=== PATIENT | female | born 1950 | race Asian ===

== ENCOUNTER → 2016-11-19 | Outpatient (CLI) | payer MEDICARE, OTHER | END | disposition home or self-care (01) | LOC: CFH 09:08 | DX: K80.20 Calculus of gallbladder without cholecystitis without obstruction (principal); N28.1 Cyst of kidney, acquired | CPT/HCPCS: 76700 ==

== ENCOUNTER → 2017-06-17 | Outpatient (CLI) | payer MEDICARE, OTHER | LOC: CFH 09:01 | DX: K80.20 Calculus of gallbladder without cholecystitis without obstruction (principal); N28.1 Cyst of kidney, acquired; B19.10 Unspecified viral hepatitis B without hepatic coma | CPT/HCPCS: 76700 ==

== ENCOUNTER → 2017-12-22 | Outpatient (CLI) | payer MEDICARE, OTHER | END | disposition home or self-care (01) | LOC: CFH 10:27 | DX: K76.0 Fatty (change of) liver, not elsewhere classified (principal); K80.20 Calculus of gallbladder without cholecystitis without obstruction; N28.1 Cyst of kidney, acquired | CPT/HCPCS: 76700 ==

== ENCOUNTER → 2018-06-23 | Outpatient (CLI) | payer MEDICARE, OTHER | END | disposition home or self-care (01) | LOC: CFH 11:10 | DX: K80.20 Calculus of gallbladder without cholecystitis without obstruction (principal); N28.1 Cyst of kidney, acquired | CPT/HCPCS: 76700 ==

== ENCOUNTER 2018-07-30 09:59 | Observation (INO) | payer MEDICARE, OTHER ==
[~2018-07-30] VITALS: Ht 160 cm; Wt 74.4 kg
[2018-07-30] MEDS: NS + 20MEQ KCL 1,000 ML IV SCH ×2 (06:14→18:27)
[2018-07-30] MEDS: PLEASE ENTER HEIGHT AND WEIGHT MC SCH ×2 (08:00→14:34)
[~2018-07-30 09:59] MED LIST: ACETAMINOPHEN 650 MG/20.3 ML UDC PO PRN; AMLO-150 PO; ATOR10TA PO; BISACODYL 10 MG SUPP PR PRN; CALC600T4 PO; CHOL2000 PO; DIPHENHYDRAMINE 50 MG CAPSULE PO PRN; EPINEPHRINE 1 MG/ML, 1ML ONE; FENTANYL PF 250 MCG/5ML ONE; HYDROcodone/APAP 5/325 TABLET PO PRN; HYDROmorphone 1 MG/ML, 1ML IV PRN; IRON18TA PO; KETOROLAC 60 MG/2 ML ONE; LINA290C PO; MAGNESIUM HYDROXIDE 8%, 30ML UDC PO PRN; MIDAZOLAM 1 MG/ML, 2ML ONE; MULT-709 PO; OLME40TA12 PO; ONDANSETRON 2MG/ML, 2ML IV PRN; ONDANSETRON 4 MG TABLET PO PRN; ROPIvacaine/PF 0.5%, 30 ML ONE; SCOPOLAMINE PATCH, 1.5MG PATCH.TD72 TD ONE; SENNA/DOCUSATE TABLET PO PRN; SODIUM CHLORIDE 0.9% 50 ML ONE; TENO300T5 PO; TRANEXAMIC ACID 100 MG/ML, 10ML ONE; VANCOMYCIN 1,000 MG ONE; ZOLPIDEM 5MG TABLET PO PRN
[2018-07-30] MEDS ORDERED: LIDOCAINE-MPF 1%, 2ML ONE (10:08)
[2018-07-30] MEDS ORDERED: LACTATED RINGERS 1,000 ML IV SCH (10:11)
[2018-07-30 10:18] VITALS: BP 137/80
[2018-07-30] MEDS ORDERED: ACETAMINOPHEN 500 MG TABLET PO ONE (10:30)
[2018-07-30] MEDS ORDERED: LIDOCAINE-MPF 1%, 2ML INFIL ONE (10:30)
[2018-07-30] MEDS ORDERED: GABAPENTIN 300 MG CAPSULE PO ONE (10:30)
[2018-07-30] MEDS ORDERED: DEXAMETHASONE 4 MG/ML, 1ML ONE (10:40)
[2018-07-30] MEDS ORDERED: ALBUTEROL/IPRATROPIUM 2.5MG/0.5MG, 3 ML NPPB PRN (11:30)
[2018-07-30] MEDS ORDERED: METOPROLOL 1 MG/ML, 5ML IV PRN (11:30)
[2018-07-30] MEDS ORDERED: PROMETHAZINE 25 MG/ML, 1ML IV PRN (11:30)
[2018-07-30] MEDS ORDERED: hydrALAzine 20 MG/ML, 1ML IV PRN (11:30)
[2018-07-30] MEDS ORDERED: MIDAZOLAM 1 MG/ML, 2ML IV PRN (11:30)
[2018-07-30] MEDS ORDERED: FENTANYL PF 100 MCG/2ML IV PRN (11:30)
[2018-07-30] MEDS ORDERED: ONDANSETRON 2MG/ML, 2ML IV PRN (11:30)
[2018-07-30] MEDS ORDERED: OXYcodone 5 MG/5 ML ORAL.SOL UDC PO PRN (11:30)
[2018-07-30] MEDS ORDERED: HYDROmorphone 2 MG/ML, 1ML IVPush PRN (11:30)
[2018-07-30] MEDS ORDERED: MEPERIDINE/PF 25MG/0.5ML IVPush PRN (11:30)
[2018-07-30] MEDS ORDERED: SCOPOLAMINE PATCH, 1.5MG PATCH.TD72 TD PRN (11:30)
[2018-07-30] MEDS ORDERED: EPHEDRINE 50 MG/ML, 1ML ONE (11:32)
[2018-07-30] MEDS ORDERED: BUPIVACAINE/PF 0.25% ONE (11:32)
[2018-07-30] MEDS ORDERED: LIDOCAINE-MPF 2% ,5ML ONE (11:32)
[2018-07-30] MEDS ORDERED: ONDANSETRON 2MG/ML, 2ML ONE (11:34)
[2018-07-30] MEDS ORDERED: CEFAZOLIN 1,000 MG ONE (11:34)
[2018-07-30] MEDS ORDERED: PROPOFOL 10 MG/ML, 20ML ONE (11:34)
[2018-07-30] MEDS ORDERED: OXYcodone 5 MG/5 ML ORAL.SOL UDC ONE (12:21)
[2018-07-30] MEDS: DOCUSATE 100 MG CAPSULE PO SCH ×2 (14:34→21:16)
[2018-07-30 14:59] VITALS: BP 96/57
[2018-07-30] MEDS: CEFAZOLIN PMX 2GM/50ML 50 ML IVPB SCH (18:27)
[2018-07-30] MEDS: ASPIRIN 81 MG TABLET EC PO SCH (18:28)
[2018-07-30 19:14] VITALS: BP 123/68
[2018-07-30] MEDS: TEMPLATE NON-FORMULARY MED. (Linaclotide** (Linzess**) 290 MCG) PO SCH (21:00)
[2018-07-30] MEDS: TENOFOVIR 300MG TABLET PO SCH (21:00)
[2018-07-30 21:14] VITALS: BP 113/66
[2018-07-30] MEDS: ATORVASTATIN 10 MG TABLET PO SCH (21:16)
[2018-07-30] MEDS: AMLODIPINE 5 MG TABLET PO SCH (21:16)
[2018-07-30] MEDS: LOSARTAN 50MG TABLET PO SCH (21:16)
[2018-07-31] VITALS (13 sets, daily range): BP systolic 108–120; BP diastolic 63–72
[2018-07-31] MEDS: PLEASE ENTER HEIGHT AND WEIGHT MC SCH
[2018-07-31] MEDS: CEFAZOLIN PMX 2GM/50ML 50 ML IVPB SCH (03:16)
[2018-07-31] MEDS ORDERED: DEXAMETHASONE 4 MG/ML, 1ML IVPush SCH (06:00)
[2018-07-31] MEDS: ASPIRIN 81 MG TABLET EC PO SCH ×2 (06:37→18:05)
[2018-07-31] MEDS: NS + 20MEQ KCL 1,000 ML IV SCH ×2 (07:14→19:44)
[2018-07-31] MEDS: DOCUSATE 100 MG CAPSULE PO SCH ×2 (07:59→20:16)
[2018-07-31] MEDS ORDERED: OXYC5TAB3 PO (10:30)
[2018-07-31] MEDS ORDERED: TRAM50TA2 PO (10:31)
[2018-07-31] MEDS ORDERED: MELO7.5T31 PO (10:32)
[2018-07-31] MEDS: AMLODIPINE 5 MG TABLET PO SCH (20:16)
[2018-07-31] MEDS: TENOFOVIR 300MG TABLET PO SCH (20:16)
[2018-07-31] MEDS: ATORVASTATIN 10 MG TABLET PO SCH (20:16)
[2018-07-31] MEDS: TEMPLATE NON-FORMULARY MED. (Linaclotide** (Linzess**) 290 MCG) PO SCH (20:17)
[2018-07-31] MEDS: LOSARTAN 50MG TABLET PO SCH (20:17)
[2018-07-31] MEDS: OXYcodone IR 5MG TABLET PO PRN ×2 (22:29→23:00)
[2018-08-01 02:20] VITALS: BP 119/68
[2018-08-01] MEDS: ASPIRIN 81 MG TABLET EC PO SCH (04:59)
[2018-08-01] MEDS: OXYcodone IR 5MG TABLET PO PRN ×2 (04:59→10:34)
[2018-08-01 07:50] VITALS: BP 129/67
[2018-08-01] MEDS: DOCUSATE 100 MG CAPSULE PO SCH (08:04)
[2018-08-01] MEDS: NS + 20MEQ KCL 1,000 ML IV SCH (08:04)
[2018-08-01 10:21] VITALS: BP 122/71
== END 2018-08-01 10:40 | disposition home or self-care (01) ==
LOC: OUT 09:59 → 4NOR 13:12 → OUT 18:29 → 4NOR 18:29
PROVIDERS: ADMIT Orthopaedic Surgery; ATTEND Orthopaedic Surgery
DX: M17.11 Unilateral primary osteoarthritis, right knee (principal); Z96.659 Presence of unspecified artificial knee joint
CPT/HCPCS: 27446; 36415; 85014; 85018; 96365; 96366; 97110; 97116; 97162; 97166; 97530; C1713; C1776; G0378; J0171; J0690; J1100; J1885; J2250; J2405; J2704; J2795; J3010; J3370; J3480; J3490; J7120

== ENCOUNTER → 2018-12-08 | Outpatient (CLI) | payer MEDICARE, OTHER ==
[~2018-12-08] MED LIST changes: -ACETAMINOPHEN 650 MG/20.3 ML UDC PO PRN; -BISACODYL 10 MG SUPP PR PRN; -DIPHENHYDRAMINE 50 MG CAPSULE PO PRN; -EPINEPHRINE 1 MG/ML, 1ML ONE; -FENTANYL PF 250 MCG/5ML ONE; -HYDROcodone/APAP 5/325 TABLET PO PRN; -HYDROmorphone 1 MG/ML, 1ML IV PRN; -KETOROLAC 60 MG/2 ML ONE; -MAGNESIUM HYDROXIDE 8%, 30ML UDC PO PRN; +MELO7.5T31 PO; -MIDAZOLAM 1 MG/ML, 2ML ONE; -ONDANSETRON 2MG/ML, 2ML IV PRN; -ONDANSETRON 4 MG TABLET PO PRN; +OXYC5TAB3 PO; -ROPIvacaine/PF 0.5%, 30 ML ONE; -SCOPOLAMINE PATCH, 1.5MG PATCH.TD72 TD ONE; -SENNA/DOCUSATE TABLET PO PRN; -SODIUM CHLORIDE 0.9% 50 ML ONE; +TRAM50TA2 PO; -TRANEXAMIC ACID 100 MG/ML, 10ML ONE; -VANCOMYCIN 1,000 MG ONE; -ZOLPIDEM 5MG TABLET PO PRN
== END | disposition home or self-care (01) ==
LOC: CFH 08:25
DX: K76.0 Fatty (change of) liver, not elsewhere classified (principal); K85.10 Biliary acute pancreatitis without necrosis or infection; I10 Essential (primary) hypertension; E78.5 Hyperlipidemia, unspecified; K59.00 Constipation, unspecified; D64.9 Anemia, unspecified
CPT/HCPCS: 76700

== ENCOUNTER 2019-05-06 10:59 | Emergency (ER) | payer MEDICARE, OTHER ==
[~2019-05-06] VITALS: Ht 160 cm; Wt 71.3 kg
[2019-05-06] MEDS ORDERED: DULCOLAX PO (11:33)
[2019-05-06] MEDS ORDERED: VITAMIN B12 PO (11:33)
--- NOTE | 2019-05-06 11:36 | NUR ---
PT C/O CONTINUED CONSTIPATION SINCE BEING TREATED HERE 04/18/19. PT ATTEMPTED GOLYTLELY, MAG CITRATE, STOOL SOFTENERS WITH NO RELIEF. PT DENEIS PAIN OR N/V. PT HAS BEEN HAVING LIQUID STOOLS. LAST NORMAL BM WAS ONE MONTH AGO.
--- NOTE | 2019-05-06 12:19 | NUR ---
CHART UP FOR MD RECHECK. PT AND FAMILY AWARE.
--- NOTE | 2019-05-06 12:23 | NUR ---
REPORT RECIEVED FROM DOLORES BIGGS. ASSUMED CARE OF PT.
[2019-05-06 13:02] VITALS: BP 102/69
== END 2019-05-06 13:03 | disposition home or self-care (01) ==
LOC: ED 12:29
DX: K62.89 Other specified diseases of anus and rectum (principal); I10 Essential (primary) hypertension; E78.5 Hyperlipidemia, unspecified; Z90.710 Acquired absence of both cervix and uterus
CPT/HCPCS: 74021; 99283

== ENCOUNTER 2019-06-02 08:42 | Outpatient (CLI) | payer MEDICARE, OTHER ==
[~2019-06-02 08:42] MED LIST changes: +DULCOLAX PO; +VITAMIN B12 PO
[2019-06-02] MEDS ORDERED: OMNIPAQUE 350 MG/ML, 100ML BOTTLE ONE (15:00)
== END 2019-06-02 23:59 | disposition home or self-care (01) ==
LOC: CFH 08:42
PROVIDERS: ATTEND Nurse Practitioner Family
DX: K80.20 Calculus of gallbladder without cholecystitis without obstruction (principal); K76.9 Liver disease, unspecified; M85.80 Other specified disorders of bone density and structure, unspecified site; N95.9 Unspecified menopausal and perimenopausal disorder
CPT/HCPCS: 74177; 77080; 82565; Q9967

== ENCOUNTER 2019-06-14 08:37 | Outpatient (CLI) | payer MEDICARE, OTHER | END 2019-06-14 23:59 | disposition home or self-care (01) | LOC: CFH 08:37 | DX: B19.10 Unspecified viral hepatitis B without hepatic coma (principal); K80.80 Other cholelithiasis without obstruction; K76.0 Fatty (change of) liver, not elsewhere classified | CPT/HCPCS: 76700 ==

== ENCOUNTER 2019-12-26 09:47 | Outpatient (CLI) | payer MEDICARE, OTHER | END 2019-12-26 23:59 | disposition home or self-care (01) | LOC: CFH 09:47 | DX: K80.20 Calculus of gallbladder without cholecystitis without obstruction (principal); K76.89 Other specified diseases of liver; B19.10 Unspecified viral hepatitis B without hepatic coma | CPT/HCPCS: 76700 ==

== ENCOUNTER → 2020-04-26 | Outpatient (CLI) | payer MEDICARE, OTHER ==
[~2020-04-26] MED LIST changes: -CALC600T4 PO; +CALC600T60 PO; +Iron PO; +vitamin c PO
[2020-04-26 13:47] LABS: ANION GAP 3 mmol/L (5-15); CHLORIDE 110 mmol/L (98-107)
[2020-04-26 13:48] LABS: ALANINE AMINOTRANSFERASE 41 U/L (12-78); ALBUMIN 3.5 g/dL (3.4-5.0); ALKALINE PHOSPHATASE 150 U/L (45-117); BILIRUBIN,TOTAL 0.4 mg/dL (0.2-1.0); CALCIUM 8.9 mg/dL (8.5-10.1); CREATININE 0.99 mg/dL (0.55-1.02); TOTAL PROTEIN 7.7 g/dL (6.4-8.2)
== END | disposition home or self-care (01) ==
LOC: STAR 11:14
PROVIDERS: ATTEND Internal Medicine
DX: Z01.818 Encounter for other preprocedural examination (principal); K56.41 Fecal impaction; R94.31 Abnormal electrocardiogram [ECG] [EKG]
CPT/HCPCS: 36415; 80053; 93005

== ENCOUNTER → 2020-05-01 | Outpatient (CLI) | payer MEDICARE, OTHER | END | disposition home or self-care (01) | LOC: RAD 09:35 | PROVIDERS: ATTEND Internal Medicine | DX: K80.20 Calculus of gallbladder without cholecystitis without obstruction (principal); N28.1 Cyst of kidney, acquired; B18.1 Chronic viral hepatitis B without delta-agent | CPT/HCPCS: 76700 ==

== ENCOUNTER 2020-05-09 06:34 | Day surgery (SDC) | payer MEDICARE, OTHER ==
[~2020-05-09] VITALS: Ht 160 cm; Wt 71.0 kg
[2020-05-09] MEDS ORDERED: LACTATED RINGERS 1,000 ML IV ONE (07:11)
[2020-05-09] MEDS ORDERED: CHLORHEXIDINE 15 ML UDC MM STA (07:11)
[2020-05-09 07:13] VITALS: BP 124/68
[2020-05-09] MEDS ORDERED: CHLORHEXIDINE 15 ML UDC ONE (07:17)
[2020-05-09] MEDS ORDERED: LIDOCAINE-MPF 1%, 2ML ONE (07:20)
[2020-05-09] MEDS ORDERED: LIDOCAINE-MPF 1%, 2ML INFIL STA (07:41)
[2020-05-09] MEDS ORDERED: PROPOFOL 10 MG/ML, 20ML ONE ×4 (09:26)
[2020-05-09] MEDS ORDERED: DIAZEPAM 5 MG/ML, 2ML IVPush PRN (10:00)
[2020-05-09] MEDS ORDERED: PROMETHAZINE 25 MG/ML, 1ML IVPush PRN (10:00)
[2020-05-09] MEDS ORDERED: ONDANSETRON 2MG/ML, 2ML IVPush PRN (10:00)
[2020-05-09] MEDS ORDERED: MEPERIDINE/PF 25MG/0.5ML IVPush PRN (10:00)
[2020-05-09] MEDS ORDERED: EPHEDRINE 50 MG/ML, 1ML IVPush PRN (10:00)
[2020-05-09] MEDS ORDERED: hydrALAzine 20 MG/ML, 1ML IV PRN (10:00)
[2020-05-09] MEDS ORDERED: FENTANYL PF 100 MCG/2ML IV PRN (10:00)
[2020-05-09] MEDS ORDERED: DIPHENHYDRAMINE 50 MG/ML, 1ML IVPush PRN (10:00)
[2020-05-09] MEDS ORDERED: OXYcodone 5 MG/5 ML ORAL.SOL UDC PO PRN (10:00)
[2020-05-09] MEDS ORDERED: HYDROmorphone 1 MG/ML, 1ML INJ IVPush PRN (10:00)
[2020-05-09] MEDS ORDERED: PROMETHAZINE 12.5 MG SUPP PR PRN (10:00)
[2020-05-09] MEDS ORDERED: ALBUTEROL SULFATE 2.5 MG/3 ML NPPB PRN (10:00)
[2020-05-09] MEDS ORDERED: MIDAZOLAM 1 MG/ML, 2ML IV PRN (10:00)
[2020-05-09] MEDS ORDERED: LABETALOL 5MG/ML, 20ML IV PRN (10:00)
[2020-05-09] MEDS ORDERED: OXYcodone 5 MG/5 ML ORAL.SOL UDC ONE (10:17)
[2020-05-09] MEDS ORDERED: FENTANYL PF 100 MCG/2ML ONE (10:17)
[2020-05-09] MEDS ORDERED: ACETAMINOPHEN 650 MG/20.3 ML UDC ONE (10:17)
[2020-05-09] MEDS ORDERED: ACETAMINOPHEN 650 MG SUPP PR PRN (10:30)
== END 2020-05-09 11:50 | disposition home or self-care (01) ==
LOC: OUT 06:34
PROVIDERS: ATTEND Internal Medicine
DX: K56.41 Fecal impaction (principal); I10 Essential (primary) hypertension; E78.5 Hyperlipidemia, unspecified; Z20.828 Contact with and (suspected) exposure to other viral communicable diseases; Z88.1 Allergy status to other antibiotic agents; Z88.2 Allergy status to sulfonamides; Z88.8 Allergy status to other drugs, medicaments and biological substances; Z79.899 Other long term (current) drug therapy; Z98.890 Other specified postprocedural states; Z82.49 Family history of ischemic heart disease and other diseases of the circulatory system
CPT/HCPCS: 45379; 87635; J2704; J3010; J7120

== ENCOUNTER 2021-02-26 09:35 | Outpatient (CLI) | payer MEDICARE, OTHER ==
[~2021-02-26 09:35] MED LIST changes: -OXYC5TAB3 PO; +OXYC5TAB98 PO
== END 2021-02-26 23:59 | disposition home or self-care (01) ==
LOC: CFH 09:35
PROVIDERS: ATTEND Internal Medicine
DX: K80.21 Calculus of gallbladder without cholecystitis with obstruction (principal); N28.1 Cyst of kidney, acquired; B18.1 Chronic viral hepatitis B without delta-agent
CPT/HCPCS: 76700